=== PATIENT | male | born 1975 | race Caucasian/White ===

== ENCOUNTER 2017-09-29 08:02 | Day surgery (SDC) | payer OTHER ==
[~2017-09-29] VITALS: Ht 188 cm; Wt 99.3 kg
[~2017-09-29 08:02] MED LIST: LIDOCAINE 1%-EPI 1:100K, 30ML ONE; ROPIvacaine/PF 0.5%, 30 ML ONE
[2017-09-29] MEDS ORDERED: FENTANYL PF 100 MCG/2ML ONE (08:37)
[2017-09-29] MEDS ORDERED: LACTATED RINGERS 1,000 ML IV SCH (08:37)
[2017-09-29] MEDS ORDERED: MIDAZOLAM 1 MG/ML, 2ML ONE (08:37)
[2017-09-29 08:43] VITALS: BP 110/73
[2017-09-29] MEDS ORDERED: NAPR220C2 PO (08:56)
[2017-09-29] MEDS ORDERED: GABAPENTIN 300 MG CAPSULE PO ONE (09:00)
[2017-09-29] MEDS ORDERED: PLEASE ENTER HEIGHT AND WEIGHT MC SCH (09:00)
[2017-09-29] MEDS ORDERED: PLEASE ENTER ALLERGIES MC SCH (09:00)
[2017-09-29] MEDS ORDERED: ACETAMINOPHEN 500 MG TABLET PO ONE (09:00)
[2017-09-29] MEDS ORDERED: CEFAZOLIN 1,000 MG ONE (09:04)
[2017-09-29] MEDS ORDERED: ONDANSETRON 2MG/ML, 2ML ONE (09:04)
[2017-09-29] MEDS ORDERED: DEXAMETHASONE 4 MG/ML, 1ML ONE (09:04)
[2017-09-29] MEDS ORDERED: PROPOFOL 10 MG/ML, 20ML ONE (09:04)
[2017-09-29] MEDS ORDERED: KETOROLAC 30 MG/1 ML ONE (09:13)
[2017-09-29] MEDS ORDERED: OXYcodone 5 MG/5 ML ORAL.SOL UDC PO PRN (09:30)
[2017-09-29] MEDS ORDERED: HYDROmorphone 1 MG/ML, 1ML IV PRN (09:30)
[2017-09-29] MEDS ORDERED: MEPERIDINE/PF 25MG/0.5ML IVPush PRN (09:30)
[2017-09-29] MEDS ORDERED: MIDAZOLAM 1 MG/ML, 2ML IV PRN (09:30)
[2017-09-29] MEDS ORDERED: PROMETHAZINE 25 MG SUPP PR PRN (09:30)
[2017-09-29] MEDS ORDERED: PROMETHAZINE 25 MG/ML, 1ML IV PRN (09:30)
[2017-09-29] MEDS ORDERED: FENTANYL PF 100 MCG/2ML IV PRN (09:30)
[2017-09-29] MEDS ORDERED: ONDANSETRON ODT 8 MG PO PRN (09:30)
== END 2017-09-29 12:15 | disposition home or self-care (01) ==
LOC: OUT 08:02
PROVIDERS: ATTEND Orthopaedic Surgery
DX: S83.242A Other tear of medial meniscus, current injury, left knee, initial encounter (principal); M65.862 Other synovitis and tenosynovitis, left lower leg; M17.12 Unilateral primary osteoarthritis, left knee; M23.42 Loose body in knee, left knee; K21.9 Gastro-esophageal reflux disease without esophagitis; Z79.899 Other long term (current) drug therapy; Z98.890 Other specified postprocedural states; X58.XXXA Exposure to other specified factors, initial encounter; Y93.89 Activity, other specified; Y92.89 Other specified places as the place of occurrence of the external cause; Y99.8 Other external cause status
CPT/HCPCS: 29876; 29881; J0690; J1100; J1885; J2250; J2405; J2704; J2795; J3010; J3490; J7120